=== PATIENT | female | born 1955 | race Caucasian/White ===

== ENCOUNTER 2017-10-01 19:45 | Emergency (ER) | payer OTHER ==
[~2017-10-01] VITALS: Ht 157.5 cm; Wt 40.8 kg
[2017-10-01] MEDS ORDERED: VASOTEC5 MG (19:58)
[2017-10-01] MEDS ORDERED: ATENOLOL50 MG (19:58)
[2017-10-01] MEDS ORDERED: TESSALON PERLE100 M1 PO (22:31)
[2017-10-11] MEDS ORDERED: OMEPRAZOLE20 M1 PO (18:42)
[2017-10-11] MEDS ORDERED: PEPCID AC20 MG PO (18:42)
== END 2017-10-01 22:41 | disposition home or self-care (01) ==
LOC: ER 19:45
DX: R30.0 Dysuria (principal)

== ENCOUNTER → 2017-10-11 | Emergency (ER) | payer OTHER ==
[~2017-10-11] VITALS: Ht 157.5 cm; Wt 40.8 kg
[~2017-10-11] MED LIST: ATENOLOL50 MG; OMEPRAZOLE20 M1 PO; PEPCID AC20 MG PO; TESSALON PERLE100 M1 PO; VASOTEC5 MG
== END | disposition home or self-care (01) ==
LOC: ER 18:00
DX: H92.03 Otalgia, bilateral (principal); H61.23 Impacted cerumen, bilateral; K29.70 Gastritis, unspecified, without bleeding